=== PATIENT | male | born 1985 | race Caucasian/White ===

== ENCOUNTER 2018-08-05 12:28 | Emergency (ER) | payer BC ==
--- NOTE | 2018-08-05 12:47 | PDOC ---
History of Present Illness <Alana Brown - Last Filed: 08/05/18 17:12> - History of Present Illness Initial Comments: 08/05/18 14:09 32 years old with past medical history significant for EtOH abuse history of withdrawal the past no history of seizures or DTs presents to the emergency department with day history of moderate to severe nausea retching spitting up tremors shaking anxiety and feeling that there is something caught in his throat Able to swallow water but significant amount of retching and dry heaving Last drink was 3 days ago Patient was drinking up to 1 L was daily No history of DTs or seizures. Symptoms are severe persistent concent no exacerbating or alleviating factors <Parish Arshad - Last Filed: 08/05/18 17:29> - General Chief Complaint: Respiratory Stated Complaint: HAS NOT EATEN IN 3 DAYS COUGH Time Seen by Provider: 08/05/18 12:35 Past History <Alana Brown - Last Filed: 08/05/18 17:12> <Parish Arshad - Last Filed: 08/05/18 17:29> - Past Medical History Allergies/Adverse Reactions: Allergies Allergy/AdvReac Type Severity Reaction Status Date / Time No Known Allergies Allergy Unverified 08/05/18 12:40 Home Medications: Ambulatory Orders Multivit-Min/Iron Fum/Folic AC [[id number] Tablet] 1 each PO DAILY 08/05/18 Review of Systems - Review of Systems Comments:: 08/05/18 14:09 ROS: A complete review of 10 out of 10 review of systems is taken and is negative apart from what is previously mentioned below and in the HPI. <Parish Arshad - Last Filed: 08/05/18 17:29> *Physical Exam - Vital Signs Last Vital Signs Temp Pulse Resp BP Pulse Ox 98.9 F 100 H 16 127/83 97 08/05/18 15:22 08/05/18 15:22 08/05/18 15:22 08/05/18 15:22 08/05/18 15:22 <Alana Brown - Last Filed: 08/05/18 17:12> - Physical Exam Comments: 08/05/18 14:10 Vitals: Triage Vital signs reviewed General Appearance: Diaphoretic Head: Atraumatic, Eyes: Pupils equal reactive round, extraocular movement intact Throat: Posterior oropharynx without erythema, mucous membranes moist,+ tongue fasciculations Neck: Supple;No Nucal rigidity Chest Wall: Nontender Cardiac: Tachycardic Lungs: Clear to auscultation bilateral, good air movement bilaterally, Abdomen: Soft, non distended, normal bowel sounds, non tender to palpation Extremities: Full range of motion to all extremities, no cyanosis, clubbing, or edema Skin: Warm and dry, no rashes or lesions, no rash, no petechiae Neuro: AOX3; Cranial Nerves 2-12 grossly intact, Strength intact to all extremities, Sensation intact to all extremities,gait wnl Psych: normal mood, normal affect <Parish Arshad - Last Filed: 08/05/18 17:29> ED Treatment Course - LABORATORY CBC & Chemistry Diagram: 08/05/18 13:15 08/05/18 13:15 - ADDITIONAL ORDERS Additional order review: Laboratory Results 08/05/18 08/05/18 13:15 13:07 Sodium 136 Potassium 3.6 Chloride 96 L Carbon Dioxide 22 Anion Gap 18 H BUN 8 Creatinine 0.8 Creat Clearance w eGFR 110.66 Random Glucose 96 Calcium 9.5 Total Bilirubin 2.2 H AST 156 H ALT 132 H Alkaline Phosphatase 83 Total Protein 7.8 Albumin 5.3 H Opiates Screen Negative Methadone Screen Negative Barbiturate Screen Negative Phencyclidine Screen Negative Ur Amphetamines Screen Negative MDMA (Ecstasy) Screen Negative Benzodiazepines Screen Negative Cocaine Screen Negative U Marijuana (THC) Screen Positive A* Alcohol, Quantitative 49.3 H 08/05/18 13:15 RBC 4.75 MCV 100.2 H MCHC 33.7 RDW 11.8 L MPV 9.4 Neutrophils % 66.4 Lymphocytes % 21.6 Monocytes % 10.5 H Eosinophils % 0.7 Basophils % 0.8 - RADIOLOGY Radiology Studies Ordered: 08/05/18 17:12 Diffuse fatty infiltration of the liver with no evidence of cholelithiasis or acute pathology - Medications Given in the ED: ED Medications Discontinued Medications Generic Name Dose Route Start Last Admin Trade Name Freq PRN Reason Stop Dose Admin Lorazepam 2 mg 08/05/18 12:58 08/05/18 13:20 Ativan Injection - IVPUSH 08/05/18 12:59 2 mg ONCE ONE Administration Sodium Chloride 2,000 ml 08/05/18 12:59 08/05/18 13:17 Normal Saline - IV 08/05/18 13:00 2,000 ml ONCE ONE Administration <Alana Brown - Last Filed: 08/05/18 17:12> - LABORATORY CBC & Chemistry Diagram: 08/05/18 13:15 08/05/18 13:15 <Parish Arshad - Last Filed: 08/05/18 17:29> Medical Decision Making - Medical Decision Making 08/05/18 15:36 32 years old with history of alcohol abuse presents to the ED in [place] alcohol withdrawal Initial CIWA score 24 Patient given 2 mg of IV Ativan IV fluids heart rate now 100 blood pressure has normalized patient no longer diaphoretic still in moderate withdrawal Case discussed with [facility] approved for transfer for detox Patient amenable to detox. Fatty liver noted on ultrasound No fever no evidence of infection no elevated white blood cell count Case discussed with [facility] attending patient medically accepted Repeat CIWA score 16. Patient to be discharged and transferred for acute detox to [facility]. Patient medically clear. <Parish Arshad - Last Filed: 08/05/18 17:29> *DC/Admit/Observation/Transfer <Alana Brown - Last Filed: 08/05/18 17:12> - Discharge Dispostion Decision to Admit order: No <Parish Arshad - Last Filed: 08/05/18 17:29> Diagnosis at time of Disposition: Alcohol withdrawal delirium, acute, hyperactive - Discharge Dispostion Disposition: HOME Condition at time of disposition: Stable - Referrals Referrals: [facility] [place] [Provider Group] - Patient Instructions Printed Discharge Instructions: DI for Drug or Alcohol Withdrawal Additional Instructions: Proceed with security to [facility]. We're finished detoxing please follow-up with our medical clinic. Return to ED for any concerns.
[2018-08-05 12:51] VITALS: BMI 32.5
[2018-08-05] MEDS ORDERED: SODIUM CHLORIDE 0.9% 1000 ML INFUS.BAG IV ONE (12:59)
[2018-08-05] MEDS ORDERED: LORazepam 2 MG/ML SDV VIAL ONE (13:18)
[2018-08-05 13:58] LABS: BASO % 0.8 % (0-2.0); EOS % 0.7 % (0-4.5); HEMATOCRIT 47.6 % (35.4-49); LYMPH % 21.6 % (8-40); MCH 33.8 pg (25.7-33.7); MCHC 33.7 g/dl (32.0-35.9); MEAN CELL VOLUME 100.2 fl (80-96); MEAN PLT VOLUME 9.4 fl (7.5-11.1); MONO % 10.5 % (3.8-10.2); NEUT % 66.4 % (42.8-82.8); PLATELET COUNT 164 K/MM3 (134-434); RBC 4.75 M/mm3 (4.00-5.60); RDW 11.8 % (11.9-15.9); WHITE BLOOD COUNT 6.1 K/mm3 (4.0-10.8)
[2018-08-05 14:02] LABS: ALBUMIN 5.3 g/dl (3.4-5.0); ALK PHOS 83 U/L (45-117); ANION GAP 18 MMOL/L (8-16); BILIRUBIN,TOTAL 2.2 mg/dl (0.2-1); BLOOD UREA NITROGEN 8 mg/dl (7-18); CALCIUM 9.5 mg/dl (8.5-10); CHLORIDE 96 mmol/L (98-107); CO2 22 mmol/L (21-32); CREATININE 0.8 mg/dl (0.55-1.3); GLUCOSE,RANDOM 96 mg/dl (74-106); POTASSIUM 3.6 mmol/L (3.5-5.1); SGOT/AST 156 U/L (15-37); SGPT/ALT 132 U/L (13-61); SODIUM 136 mmol/L (136-145); TOT PROT 7.8 g/dl (6.4-8.2)
[2018-08-05 14:20] LABS: COCAINE, UR NEGATIVE ng/ml (CUTOFF=300); METHADONE, UR NEGATIVE ng/ml (CUTOFF=300); OPIATES, URI NEGATIVE ng/ml (CUTOFF=300); PHENCYCLIDINE,URINE NEGATIVE ng/ml (CUTOFF=25); URINE AMPHETAMINES NEGATIVE ng/ml (CUTOFF=500); URINE BARBITURATES NEGATIVE ng/ml (CUTOFF=200); URINE BENZODIAZEPINES NEGATIVE ng/ml (CUTOFF=200)
[2018-08-05 17:26] VITALS: BP 126/67; PULSE 93; TEMP 98.3
--- NOTE | 2018-08-06 09:49 | EKG ---
Test Reason : Blood Pressure : / mmHG Vent. Rate : 085 BPM Atrial Rate : 085 BPM P-R Int : 128 ms QRS Dur : 096 ms QT Int : 398 ms P-R-T Axes : 000 003 000 degrees QTc Int : 473 ms NORMAL SINUS RHYTHM NORMAL ECG NO PREVIOUS ECGS AVAILABLE Confirmed by JULITO PASTOR, SUNITA ([id number]) on 08/06/2018 9:49:24 AM Referred By: GOSIA VALDEZ Confirmed By:SUNITA VILA MD
== END 2018-08-05 18:23 | disposition home or self-care (01) ==
LOC: FER 12:28
PROC: 3E033NZ Introduction of Analgesics, Hypnotics, Sedatives into Peripheral Vein, Percutaneous Approach (ICD-10-PCS; principal; 2018-08-05)
PROC: 3E0337Z Introduction of Electrolytic and Water Balance Substance into Peripheral Vein, Percutaneous Approach (ICD-10-PCS; 2018-08-05)
DX: F10.231 Alcohol dependence with withdrawal delirium (principal)
CPT/HCPCS: 36415; 71045-TC-FY; 76705-TC; 80053; 80307; 85025; 93005; 99283-25; J7030

== ENCOUNTER 2018-08-05 21:05 | Inpatient (IN) | payer BC ==
--- NOTE | 2018-08-06 02:07 | HP ---
CIWA Score Nausea/Vomitin Muscle Tremors: 1-None Visible, but Hope Anxiety: 4-Mod. Anxious/Guarded Agitation: 4-Moderately Restless Paroxysmal Sweats: 3 Orientation: 0-Oriented Tacttile Disturbances: 0-None Auditory Disturbances: 0-None Visual Disturbances: 0-None Headache: 0-None Present CIWA-Ar Total Score: 15 - Admission Criteria [facility]ASAS Guidelines: Admission for Medically Managed Detox: Requires at least one of the followin. CIWA greater than 12 2. Seizures within the past 24 hours 3. Delirium tremens within the past 24 hours 4. Hallucinations within the past 24 hours 5. Acute intervention needed for co occurring medical disorder 6. Acute intervention needed for co occurring psychiatric disorder 7. Severe withdrawal that cannot be handled at a lower level of care (continued vomiting, continued diarrhea, abnormal vital signs) requiring intravenous medication and/or fluids 8. Patient presents the following: CIWA greater than 12 Admission Criteria Met: Admission criteria met Admission ROS [facility] Chief Complaint: seeking detox for c/o worsening withdrawal sx's Allergies/Adverse Reactions: Allergies Allergy/AdvReac Type Severity Reaction Status Date / Time No Known Allergies Allergy Unverified 08/05/18 12:40 History of Present Illness: 32 Y.O. MALE WITH HX/O ALCOHOL AND COCAINE DEPENDENCE HERE FOR DETOX. CLIENT IS REFERRED BY [facility] AFTER PRESENTING WITH C/O WORSENING WITHDRAWAL SX'S. CONT TO COMPLAIN OF WITHDRAWAL SX'S CIWA15. HE WAS GIVEN ATIVAN EARLIER IN THE ER FOR STABILIZATION. DENIES HX/O SEIZURE, BLACK OUTS, DT'S, SI/HI/AVH. tHIS IS CLIENT FIRST ADMISSION HERE. Exam Limitations: No Limitations - Ebola screening Have you traveled outside of the country in the last 21 days: No Have you had contact with anyone from an Ebola affected area: No Do you have a fever: No - Review of Systems Constitutional: Chills, Loss of Appetite, Night Sweats, Changes in sleep EENT: reports: No Symptoms Reported Respiratory: reports: No Symptoms reported Cardiac: reports: No Symptoms Reported GI: reports: Constipated, Nausea, Poor Appetite, Poor Fluid Intake, Vomiting, Abdominal cramping : reports: No Symptoms Reported Musculoskeletal: reports: Joint Pain (LEFT GREAT TOE) Integumentary: reports: No Symptoms Reported Neuro: reports: No Symptoms reported Endocrine: reports: No Symptoms Reported Hematology: reports: No Symptoms Reported Psychiatric: reports: Orientated x3, Anxious Other Systems: Reviewed and Negative Patient History - Patient Medical History Hx Anemia: No Hx Asthma: No Hx Chronic Obstructive Pulmonary Disease (COPD): No Hx Cancer: No Hx Cardiac Disorders: No Hx Congestive Heart Failure: No Hx Hypertension: No Hx Hypercholesterolemia: No Hx Pacemaker: No HX Cerebrovascular Accident: No Hx Seizures: No Hx Dementia: No Hx Diabetes: No Hx Gastrointestinal Disorders: No Hx Liver Disease: No Hx Genitourinary Disorders: No Hx Sexually Transmitted Disorders: No Hx Renal Disease (ESRD): No Hx Thyroid Disease: No Hx Human Immunodeficiency Virus (HIV): No Hx Hepatitis C: No Hx Depression: No Hx Suicide Attempt: No Hx Bipolar Disorder: No Hx Schizophrenia: No - Patient Surgical History Past Surgical History: No - PPD History Previous Implant?: Yes Documented Results: Negative w/o proof Implanted On Prior [facility] Admission?: No PPD to be Administered?: Yes - Smoking Cessation Smoking history: Never smoked Initiated information on smoking cessation: No - Substance & Tx. History Hx Alcohol Use: Yes Hx Substance Use: Yes Substance Use Type: Alcohol, Marijuana Hx Substance Use Treatment: No - Substances abused Alcohol Other (specify): WHISKEY Substance route: Oral Frequency: Daily Amount used: 1 PINT Age of first use: 16 Date of last use: 08/04/18 Marijuana/Hashish Substance route: Smoking Frequency: 3-6 times per week Amount used: 1 JOINT Age of first use: 16 Date of last use: 08/04/18 Family Disease History - Family Disease History Family History: Denies Family Disease History: Other: Mother (ALCOHOLISM), Sister (DM) Admission Physical Exam S - Vital Signs Vital Signs: Vital Signs - 24 hr 08/06/18 00:41 Temperature 98.5 F Pulse Rate 102 H Respiratory 20 Rate Blood Pressure 149/101 H - Physical General Appearance: Yes: Mild Distress, Tremorous (FELT), Irritable, Anxious HEENTM: Yes: EOMI, Normocephalic, Normal Voice, GLENN, Pharynx Normal Respiratory: Yes: Chest Non-Tender, Lungs Clear, Normal Breath Sounds, No Respiratory Distress, No Accessory Muscle Use Neck: Yes: No masses,lesions,Nodules, Supple, Trachea in good position Breast: Yes: Breast Exam Deferred Cardiology: Yes: Regular Rhythm, Regular Rate, S1, S2 Abdominal: Yes: Normal Bowel Sounds, Soft, Protuberent Genitourinary: Yes: Within Normal Limits (NO C/O) Back: Yes: Normal Inspection Musculoskeletal: Yes: full range of Motion, Gait Steady Extremities: Yes: Normal Capillary Refill, Normal Range of Motion, Non-Tender, Tremors Neurological: Yes: Fully Oriented, Alert, Motor Strength 5/5, Depressed Affect Integumentary: Yes: Warm, Clammy Lymphatic: Yes: Within Normal Limits - Diagnostic (1) Alcohol dependence with uncomplicated withdrawal Current Visit: Yes Status: Acute (2) Cannabis abuse, uncomplicated Current Visit: Yes Status: Acute (3) Substance induced mood disorder Current Visit: Yes Status: Acute (4) Depressed affect Current Visit: Yes Status: Acute Cleared for Admission [facility] - Detox or Rehab [facility] Level of Care: Medically Managed Detox Regimen/Protocol: Librium Claeared for Rehab Admission: No Breathalyzer - Breathalyzer Breathalyzer: 0 Urine Drug Screen - Test Device Lot number: [id number] Expiration date: 04/04/20 - Control Is test valid?: Yes - Results Drug screen NEGATIVE: No Urine drug screen results: THC-Marijuana, BZO-Benzodiazepines Inpatient Rehab Admission - Rehab Decision to Admit Inpatient rehab admission?: No
[2018-08-06] MEDS ORDERED: DICYCLOMINE HCL 10 MG CAPSULE PO PRN (02:41)
[2018-08-06] MEDS ORDERED: ONDANSETRON *ODT* 4 MG TABLET SL PRN (02:41)
[2018-08-06] MEDS ORDERED: IBUPROFEN 400 MG TABLET (FP) PO PRN (02:41)
[2018-08-06] MEDS ORDERED: chlordiazePOXIDE HCL 25 MG CAPSULE PO ONE (02:41)
[2018-08-06] MEDS ORDERED: hydrOXYzine PAMOATE 25 MG CAPSULE (FP) PO PRN (02:41)
[2018-08-06] MEDS ORDERED: BACLOFEN 10 MG TABLET (FP) PO PRN (02:41)
[2018-08-06] MEDS ORDERED: P-EPHED 60MG/TRIPROLIDI 2.5MG TABLET PO PRN (02:41)
[2018-08-06] MEDS ORDERED: MAGNESIUM HYDROX 2400MG/30ML ORAL SUSPENSION 30 ML CUP PO PRN (02:41)
[2018-08-06] MEDS ORDERED: MAG HYDROX/AL HYDROX/SIMETH 30 ML UNIT-DOSE CUP PO PRN (02:41)
[2018-08-06] MEDS ORDERED: BISMUTH SUBSALICYLATE 524 MG/30 ML UD PO PRN (02:41)
[2018-08-06] MEDS ORDERED: MAGNESIUM CITRATE 300 ML BOTTLE PO PRN (02:41)
[2018-08-06] MEDS ORDERED: guaiFENesin 200 MG/10 ML 10 ML UNIT-DOSE CUPS PO PRN (02:41)
[2018-08-06] MEDS ORDERED: chlordiazePOXIDE HCL 10 MG CAPSULE PO PRN (02:41)
[2018-08-06] MEDS ORDERED: METHOCARBAMOL 500 MG TABLET PO PRN (02:41)
[2018-08-06] MEDS ORDERED: MENTHOL/PHENOL 1 EACH UD MM PRN (02:41)
[2018-08-06] MEDS ORDERED: ACETAMINOPHEN 325 MG TABLET (FP) PO PRN ×2 (02:41)
[2018-08-06] MEDS ORDERED: chlordiazePOXIDE HCL 25 MG CAPSULE PO SCH ×3 (05:00→23:00)
[2018-08-06] MEDS ORDERED: chlordiazePOXIDE HCL 25 MG CAPSULE PO PRN (07:08)
--- NOTE | 2018-08-06 10:08 | EKG ---
Test Reason : Blood Pressure : / mmHG Vent. Rate : 097 BPM Atrial Rate : 097 BPM P-R Int : 134 ms QRS Dur : 090 ms QT Int : 360 ms P-R-T Axes : 013 -05 008 degrees QTc Int : 457 ms NORMAL SINUS RHYTHM VOLTAGE CRITERIA FOR LEFT VENTRICULAR HYPERTROPHY ABNORMAL ECG WHEN COMPARED WITH ECG OF 05-AUG-2018 13:35, NO SIGNIFICANT CHANGE WAS FOUND Confirmed by JULITO PASTOR, SUNITA ([id number]) on 08/06/2018 10:08:38 AM Referred By: MELITON Confirmed By:SUNITA VILA MD
[2018-08-06] MEDS: PRENATAL VITAMINS W/ FOLIC ACID TABLET (FP) PO SCH (10:17)
[2018-08-06] MEDS ORDERED: PNEUMOCOCCAL 23 VACCINE 0.5 ML VIAL IM ONE (12:00)
[2018-08-06] MEDS ORDERED: PNEUMOC 13-VAL CONJ-DIP CRM/PF 0.5 ML DISP.SYRIN IM ONE (12:00)
[2018-08-06] MEDS ORDERED: FLU VACCINE QUAD 60 MCG/0.5 ML (MDV 18-19) IM ONE (12:00)
[2018-08-06 14:51] LABS: EPI CELLS 0.3 /HPF (0-5); URINE APPEARANCE CLEAR; URINE BACTERIA 2.7 /hpf (NEGATIVE); URINE BILIRUBIN 1+ (NEGATIVE); URINE CASTS 1 /hpf (0-8); URINE COLOR DK YELLOW; URINE GLUCOSE (UA) NEGATIVE (NEGATIVE); URINE KETONE TRACE (NEGATIVE); URINE LEUK ESTERASE TRACE (NEGATIVE); URINE NITRITE POSITIVE (NEGATIVE); URINE PROTEIN NEGATIVE (NEGATIVE); URINE RBC 5 /hpf (0-4); URINE UROBILINOGEN 4.0 E.U/dl mg/dL (0.2-1.0); URINE WBC 0 /hpf (0-5)
--- NOTE | 2018-08-06 16:09 | PN ---
[facility] CIWA - CIWA Score Nausea/Vomitin Muscle Tremors: 3 Anxiety: 3 Agitation: 0-Normal Activity Paroxysmal Sweats: 3 Orientation: 0-Oriented Tacttile Disturbances: 2-Mild Itch/Numbness/Burn Auditory Disturbances: 2-Mild Harshness/Frighten Visual Disturbances: 0-None Headache: 0-None Present CIWA-Ar Total Score: 15 S Progress Note (SOAP) Subjective: Anxious, Tremors, Interrupted Sleep. Objective: PATIENT A & O X 3. IN NO ACUTE DISTRESS. 08/06/18 16:14 Vital Signs Temperature 96.1 F L 08/06/18 14:31 Pulse Rate 111 H 08/06/18 14:31 Respiratory Rate 20 08/06/18 14:31 Blood Pressure 136/98 08/06/18 14:31 O2 Sat by Pulse Oximetry (%) Laboratory Tests 08/06/18 11:35 Urine Color Dk yellow Urine Appearance Clear Urine pH 8.0 Ur Specific [place] 1.019 Urine Protein Negative Urine Glucose (UA) Negative Urine Ketones Trace H Urine Blood Negative Urine Nitrite Positive H Urine Bilirubin 1+ H Urine Urobilinogen 4.0 e.u/dl Ur Leukocyte Esterase Trace Urine WBC (Auto) 0 Urine RBC (Auto) 5 Urine Casts (Auto) 1 U Epithel Cells (Auto) 0.3 Urine Bacteria (Auto) 2.7 LABS NOTED. Assessment: 08/06/18 16:15 WITHDRAWAL SYMPTOMS. ELEAVTED BP. ELEVATED LIVER ENZYMES. HYPERBILIRUBINEMIA. Plan: CONTINUE DETOX. INCREASE DAILY PO FLUID INTAKE. CLONIDINE, 0.1 MG PO FOR WITHDRAWAL SYMPTOMS AND FOR ELEVATED BP (PATIENT DENIES KNOWN HISTORY OF HTN). CHANGE FROM LIBRIUM DETOX PROTOCOL TO ATIVAN DETOX PROTOCOL FOR ELEVATED ADMISSION LIVER ENZYMES VALUES. HFP TOMORROW AM FOR ELEVATED ADMISSION AST AND ALT AND FOR ELEVATED ADMISSION TOTAL BILIRUBIN LEVEL. REPEAT UA FOR ADMISSION UA ABNORMALITIES.
[2018-08-06] MEDS ORDERED: LORazepam 1 MG TABLET PO PRN (16:11)
[2018-08-06] MEDS ORDERED: cloNIDine HCL 0.1 MG TABLET PO ONE (16:15)
[2018-08-06] MEDS: LORazepam 1 MG TABLET PO SCH ×2 (18:06→22:07)
[2018-08-06] MEDS: THIAMINE HCL 100 MG TABLET (FP) PO SCH (22:07)
[2018-08-06] MEDS: MELATONIN 5 MG TABLETS PO PRN (22:07)
[2018-08-07] MEDS ORDERED: chlordiazePOXIDE 5 MG CAPSULE PO SCH (05:00)
[2018-08-07] MEDS: LORazepam 1 MG TABLET PO SCH ×2 (05:21→10:29)
[2018-08-07 10:20] LABS: BILIRUBIN,DIRECT 0.5 mg/dL (0.0-0.2); BILIRUBIN,TOTAL 1.6 mg/dL (0.2-1); TOT PROT 6.7 g/dl (6.4-8.2)
[2018-08-07] MEDS: PRENATAL VITAMINS W/ FOLIC ACID TABLET (FP) PO SCH (10:29)
[2018-08-07 12:31] LABS: URINE APPEARANCE CLEAR; URINE BILIRUBIN NEGATIVE (NEGATIVE); URINE COLOR DK YELLOW; URINE GLUCOSE (UA) NEGATIVE (NEGATIVE); URINE KETONE NEGATIVE (NEGATIVE); URINE LEUK ESTERASE NEGATIVE (NEGATIVE); URINE NITRITE NEGATIVE (NEGATIVE); URINE PROTEIN NEGATIVE (NEGATIVE)
--- NOTE | 2018-08-07 15:28 | PN ---
[facility] CIWA - CIWA Score Nausea/Vomitin-No Nausea/No Vomiting Muscle Tremors: 2 Anxiety: 3 Agitation: 1-Slight > Activity Paroxysmal Sweats: 2 Orientation: 0-Oriented Tacttile Disturbances: 0-None Auditory Disturbances: 0-None Visual Disturbances: 2-Mild Sensitivity Headache: 0-None Present CIWA-Ar Total Score: 10 [facility] Progress Note (SOAP) Subjective: Tremors, Interrupted Sleep. Objective: PATIENT A & O X 3, OBSERVED AMBULATING ON UNIT. IN NO ACUTE DISTRESS. PATIENT DENIES ANY UNUSUAL URINARY COMPLAINTS (BURNING, PAIN, FREQUENCY, URGENCY , HESITANCY). 08/07/18 15:28 Vital Signs Temperature 97.5 F L 08/07/18 14:00 Pulse Rate 97 H 08/07/18 14:00 Respiratory Rate 20 08/07/18 14:00 Blood Pressure 134/95 08/07/18 14:00 O2 Sat by Pulse Oximetry (%) Laboratory Tests 08/06/18 08/07/18 08/07/18 11:35 07:00 07:00 Total Bilirubin Direct Bilirubin AST ALT Alkaline Phosphatase Total Protein Albumin Urine Color Dk yellow Urine Appearance Clear Urine pH 8.0 Ur Specific [place] 1.019 Urine Protein Negative Urine Glucose (UA) Negative Urine Ketones Trace H Urine Blood Negative Urine Nitrite Positive H Urine Bilirubin 1+ H Urine Urobilinogen 4.0 e.u/dl Ur Leukocyte Esterase Trace Urine WBC (Auto) 0 Urine RBC (Auto) 5 Urine Casts (Auto) 1 U Epithel Cells (Auto) 0.3 Urine Bacteria (Auto) 2.7 RPR Titer Nonreactive HIV 1&2 Antibody Screen Negative HIV P24 Antigen Negative 08/07/18 08/07/18 07:00 11:10 Total Bilirubin 1.6 H Direct Bilirubin 0.5 H AST 95 H ALT 132 H Alkaline Phosphatase 77 Total Protein 6.7 Albumin 4.0 Urine Color Dk yellow Urine Appearance Clear Urine pH 8.0 Ur Specific [place] 1.018 Urine Protein Negative Urine Glucose (UA) Negative Urine Ketones Negative Urine Blood Negative Urine Nitrite Negative Urine Bilirubin Negative Urine Urobilinogen 1.0 Ur Leukocyte Esterase Negative Urine WBC (Auto) Urine RBC (Auto) Urine Casts (Auto) U Epithel Cells (Auto) Urine Bacteria (Auto) RPR Titer HIV 1&2 Antibody Screen HIV P24 Antigen LABS NOTED. RESULTS OF REPEAT UA NOTED. NO FURTHER ACTION NEEDED AT THIS TIME. RESULTS OF HP NOTED. MODERATE REDUCTION IN AST AND IN TOTAL BILIRUBIN LEVELS NOTED. 08/07/18 15:31 Assessment: 08/07/18 15:29 WITHDRAWAL SYMPTOMS. Plan: CONTINUE DETOX. PATIENT REPORTS THAT CURRENT WITHDRAWAL / DETOX SYMPTOMS HAVE SUBSIDED CONSIDERABLY IN DEGREE OVER LAST COUPLE OF DAYS, AT HIS REQUEST, HE WILL LIKELY BE D/C' D TOMORROW AM PENDING EVALUATION IN AM.
[2018-08-07] MEDS ORDERED: LORazepam 0.5 MG TABLET PO PRN (16:15)
[2018-08-07] MEDS: LORazepam 0.5 MG TABLET PO SCH ×2 (17:32→22:10)
[2018-08-07] MEDS: THIAMINE HCL 100 MG TABLET (FP) PO SCH (22:10)
[2018-08-07] MEDS: MELATONIN 5 MG TABLETS PO PRN (22:10)
[2018-08-07] MEDS ORDERED: chlordiazePOXIDE HCL 10 MG CAPSULE PO SCH (23:00)
[2018-08-08] MEDS ORDERED: chlordiazePOXIDE HCL 10 MG CAPSULE PO PRN ×2 (05:00→11:00)
[2018-08-08] MEDS ORDERED: chlordiazePOXIDE HCL 10 MG CAPSULE PO SCH ×2 (05:00→23:00)
[2018-08-08] MEDS: LORazepam 0.5 MG TABLET PO SCH (05:28)
[2018-08-08 06:14] VITALS: BP 118/77; PULSE 87; TEMP 97.3
--- NOTE | 2018-08-08 17:29 | PN ---
[facility] Progress Note (SOAP) Subjective: Patient denies current Withdrawal / Detox symptoms and reports that he feels well overall. Objective: PATIENT A & O X 3, OBSERVED AMBULATING ON UNIT. IN NO ACUTE DISTRESS. 08/08/18 17:28 Vital Signs Temperature 97.3 F L 08/08/18 06:14 Pulse Rate 87 08/08/18 06:14 Respiratory Rate 18 08/08/18 06:14 Blood Pressure 118/77 08/08/18 06:14 O2 Sat by Pulse Oximetry (%) Laboratory Tests 08/06/18 08/07/18 08/07/18 11:35 07:00 07:00 Total Bilirubin Direct Bilirubin AST ALT Alkaline Phosphatase Total Protein Albumin Urine Color Dk yellow Urine Appearance Clear Urine pH 8.0 Ur Specific [place] 1.019 Urine Protein Negative Urine Glucose (UA) Negative Urine Ketones Trace H Urine Blood Negative Urine Nitrite Positive H Urine Bilirubin 1+ H Urine Urobilinogen 4.0 e.u/dl Ur Leukocyte Esterase Trace Urine WBC (Auto) 0 Urine RBC (Auto) 5 Urine Casts (Auto) 1 U Epithel Cells (Auto) 0.3 Urine Bacteria (Auto) 2.7 RPR Titer Nonreactive HIV 1&2 Antibody Screen Negative HIV P24 Antigen Negative 08/07/18 08/07/18 07:00 11:10 Total Bilirubin 1.6 H Direct Bilirubin 0.5 H AST 95 H ALT 132 H Alkaline Phosphatase 77 Total Protein 6.7 Albumin 4.0 Urine Color Dk yellow Urine Appearance Clear Urine pH 8.0 Ur Specific [place] 1.018 Urine Protein Negative Urine Glucose (UA) Negative Urine Ketones Negative Urine Blood Negative Urine Nitrite Negative Urine Bilirubin Negative Urine Urobilinogen 1.0 Ur Leukocyte Esterase Negative Urine WBC (Auto) Urine RBC (Auto) Urine Casts (Auto) U Epithel Cells (Auto) Urine Bacteria (Auto) RPR Titer HIV 1&2 Antibody Screen HIV P24 Antigen LABS NOTED. Assessment: 08/08/18 17:29 COMPLETION OF DETOX REGIMEN. Plan: PATIENT SCHEDULED FOR D/C FORM DETOX UNIT TODAY.
--- NOTE | 2018-08-08 17:30 | DS ---
[facility] Detox Discharge Summary Admission Date: 08/06/18 Discharge Date: 08/08/18 - History Present History: Alcohol Dependence, Cannabis Dependence Additional Comments: PATIENT DENIES CURRENT WITHDRAWAL / DETOX SYMPTOMS AND REPORTS THAT HE FEELS WELL OVERALL AT TIME OF DISCHARGE FROM DETOX UNIT. PATIENT WILL ATTEND LOCAL 12- STEP / NA SUPPORT GROUP PROGRAM NEAR HIS HOME FOR AFTERCARE. PATIENT ADVISED TO FOLLOW-UP WITH HVAC TECH AFTER DISCHARGE FROM DETOX FOR GENERAL MEDICAL ASSESSMENT AND FOR ELEVATED LIVER ENZYMES AND FOR ELEVATED TOTAL BILIRUBIN LEVEL NOTED ON DETOX ADMISSION LABORATORY AND REPEAT ASSESSMENTS. PATIENT VERBALIZED UNDERSTANDING OF RECOMMENDATION. COPIES OF RESULTS OF ALL LABS DRAWN WHILE ADMITTED FOR DETOX GIVEN TO PATIENT AT TIME OF DISCHARGE FROM DETOX UNIT. PATIENT WAS DISCHARGED FROM DETOX UNIT IN STABLE MEDICAL CONDITION. Pertinent Past History: Depression. - Physical Exam Results Vital Signs: Vital Signs Temperature 97.3 F L 08/08/18 06:14 Pulse Rate 87 08/08/18 06:14 Respiratory Rate 18 08/08/18 06:14 Blood Pressure 118/77 08/08/18 06:14 O2 Sat by Pulse Oximetry (%) Pertinent Admission Physical Exam Findings: WITHDRAWAL SYMPTOMS. Laboratory Tests 08/06/18 08/07/18 08/07/18 11:35 07:00 07:00 Total Bilirubin Direct Bilirubin AST ALT Alkaline Phosphatase Total Protein Albumin Urine Color Dk yellow Urine Appearance Clear Urine pH 8.0 Ur Specific [place] 1.019 Urine Protein Negative Urine Glucose (UA) Negative Urine Ketones Trace H Urine Blood Negative Urine Nitrite Positive H Urine Bilirubin 1+ H Urine Urobilinogen 4.0 e.u/dl Ur Leukocyte Esterase Trace Urine WBC (Auto) 0 Urine RBC (Auto) 5 Urine Casts (Auto) 1 U Epithel Cells (Auto) 0.3 Urine Bacteria (Auto) 2.7 RPR Titer Nonreactive HIV 1&2 Antibody Screen Negative HIV P24 Antigen Negative 08/07/18 08/07/18 07:00 11:10 Total Bilirubin 1.6 H Direct Bilirubin 0.5 H AST 95 H ALT 132 H Alkaline Phosphatase 77 Total Protein 6.7 Albumin 4.0 Urine Color Dk yellow Urine Appearance Clear Urine pH 8.0 Ur Specific [place] 1.018 Urine Protein Negative Urine Glucose (UA) Negative Urine Ketones Negative Urine Blood Negative Urine Nitrite Negative Urine Bilirubin Negative Urine Urobilinogen 1.0 Ur Leukocyte Esterase Negative Urine WBC (Auto) Urine RBC (Auto) Urine Casts (Auto) U Epithel Cells (Auto) Urine Bacteria (Auto) RPR Titer HIV 1&2 Antibody Screen HIV P24 Antigen LABS NOTED. - Treatment Hospital Course: Detox Protocol Followed, Detoxed Safely, Responded well, Discharged Condition Good Patient has Accepted a Rehab Referral to: PATIENT WILL ATTEND LOCAL 12-STEP / NA OUTPATIENT SUPPORT GROUP PROGRAM. - Medication Discharge Medications: Ambulatory Orders Multivit-Min/Iron Fum/Folic AC [Qufvo-[id number]-[id number] Tablet] 1 each PO DAILY 08/05/18 - Diagnosis (1) Alcohol dependence with uncomplicated withdrawal Status: Acute (2) Cannabis abuse, uncomplicated Status: Acute (3) Elevated liver enzymes Status: Acute (4) Hyperbilirubinemia Status: Acute (5) Substance induced mood disorder Status: Acute (6) Depressed affect Status: Acute - AMA Did Patient Leave Against Medical Advice: No
== END 2018-08-08 08:08 | disposition home or self-care (01) | DRG 897 ==
LOC: YASAS 21:05 → Y3N 08-06 02:15
PROVIDERS: ADMIT Surgery; ATTEND Surgery
PROC: HZ2ZZZZ Detoxification Services for Substance Abuse Treatment (ICD-10-PCS; principal; 2018-08-06)
DX: F10.230 Alcohol dependence with withdrawal, uncomplicated (principal); F12.10 Cannabis abuse, uncomplicated; F19.24 Other psychoactive substance dependence with psychoactive substance-induced mood disorder; E80.6 Other disorders of bilirubin metabolism; R45.89 Other symptoms and signs involving emotional state; R94.5 Abnormal results of liver function studies; R03.0 Elevated blood-pressure reading, without diagnosis of hypertension
CPT/HCPCS: 36415; 80076; 81003; 86593; 87389; 93005; 93010; J0735